=== PATIENT | female | born 2000 | race Two or more races ===

== ENCOUNTER 2020-05-09 17:46 | Emergency (ER) | payer SELFPAY ==
[~2020-05-09] VITALS: Ht 167.6 cm; Wt 83.1 kg
[2020-05-09 19:21] LABS: BASOPHILS % (AUTO) 1 % (0-1); EOSINOPHILS % (AUTO) 1 % (1-7); LYMPHOCYTES % (AUTO) 25 % (22-44); MEAN CORPUSCULAR HEMOGLOBIN 27.8 pg (27.0-34.8); MEAN CORPUSCULAR HGB CONC 32.7 g/dL (32.4-35.8); MEAN PLATELET VOLUME 8.4 fL (7.4-10.4); MONOCYTES % (AUTO) 10 % (2-9); NEUTROPHILS % (AUTO) 63 % (42-75); PLATELET COUNT 425 x10^3/uL (130-400); RED BLOOD COUNT 4.83 x10^6/uL (3.82-5.3); RED CELL DISTRIBUTION WIDTH 15.8 % (9.6-15.2)
[2020-05-09 19:23] LABS: MD NO
[2020-05-09 19:27] LABS: ALBUMIN 4.1 g/dL (3.4-5.0); ANION GAP 5 mmol/L (5-15); CALCIUM 8.9 mg/dL (8.5-10.1); CHLORIDE 110 mmol/L (98-107)
--- NOTE | 2020-05-09 19:30 | NUR ---
PT BACK TO ROOM FOR CHEST PAIN AND SOB X 3 DAYS. 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 VSS. PT IN NAD. CALL LIGHT IN REACH
[2020-05-09 19:55] LABS: CREATININE 0.83 mg/dL (0.55-1.02)
[2020-05-09 20:37] VITALS: BP 109/73
--- NOTE | 2020-05-09 20:37 | NUR ---
Patient given discharge instructions and they have confirmed that they understand the instructions. Patient ambulatory with steady gait.
== END 2020-05-09 20:51 | disposition home or self-care (01) ==
LOC: ED 18:16
DX: R06.00 Dyspnea, unspecified (principal); R07.89 Other chest pain; R06.02 Shortness of breath; R00.2 Palpitations; R05 Cough; R09.81 Nasal congestion
CPT/HCPCS: 36415; 71045; 80048; 82040; 84443; 84703; 85025; 93005; 99285